=== PATIENT | male | born 1965 | race Caucasian/White ===

== ENCOUNTER → 2017-01-11 | Outpatient (CLI) | payer OTHER ==
[~2017-01-11] MED LIST: DIAZEPAM 10 MG TABLET ONE; DIPHENHYDRAMINE 50 MG/ML VIAL ONE; FENTANYL PF 100 MCG/2 ML VIAL. ONE; IOHEXOL 350 MG/ML 100ML VIAL. ONE; IOHEXOL 350 MG/ML 50 ML VIAL. ONE; IV NORMAL SALINE 1000ML BAG 1,000 ML ONE; LIDOCAINE 1% Multi-Dose 20 ML VIAL. ONE; MIDAZOLAM HCL 2 MG/2 ML VIAL. ONE; methylPREDNISolone SOD SUCC PF 125 MG/2 ML VIAL. ONE
== END | disposition home or self-care (01) ==
LOC: PCVCINTER 11:14
PROVIDERS: ATTEND Internal Medicine Cardiovascular Disease
DX: I25.10 Atherosclerotic heart disease of native coronary artery without angina pectoris (principal); E78.00 Pure hypercholesterolemia, unspecified; I10 Essential (primary) hypertension
CPT/HCPCS: 36252; 93458; C1751; C1760; C1769; C1894; J1200; J2250; J2930; J3010; J7030; Q9967

== ENCOUNTER → 2018-08-29 | Outpatient (CLI) | payer OTHER ==
--- NOTE | 2018-08-29 17:01 | PCVCIMAG ---
APPROVED REPORT Study performed: 08/29/2018 15:00:49 Exam: Transesophageal Echocardiogram Indication: CAD , Hypertension, Dyspnea Patient Location: Echo lab Stress Nurse: Sada Watkins RN Status: routine Ht: 6 ft 0 in HR: 67 bpm BP: 124/82 mmHg Rhythm: NSR Procedure The patient underwent an Exercise Stress Test using the Shaun Protocol. Blood pressure, heart rate, and EKG were monitored. An Echocardiogram was performed by game technician in four stages in quad fashion. At peak stress, four selected images were obtained and placed side by side with resting images for comparison. Stress Test Details Stress Test: Exercise stress testing was performed using a Shaun protocol. HR Resting HR: 67 bpmMax Heart Rate (APMHR): 170 bpm Max HR Achieved: 144 bpmTarget HR (85% APMHR): 144 bpm % of APMHR: 84 Recovery HR: 91 bpm HR response to stress: Normal HR response to stress BP Resting BP: 124/82 mmHg Max BP: 170/80 mmHg Recovery BP: 156/70 mmHg ECG Resting ECG: Sinus Rhythm w/ nonspecific ST abnormality w/ PVCs Stress ECG: Sinus Rhythm, nonspecific ST-T abnormalities ST Change: Nondiagnostic resting ST abnormalities Arrhythmia: frequent isolated PVCs and occasional couplet PVC Recovery ECG: Sinus Rhythm, nonspecific ST-T abnormalities Recovery ST Change: Nondiagnostic resting ST abnormalities Recovery Arrhythmia: PVCs Clinical Reason for Termination: Maximal effort Stress Symptoms: Knee pain post surgery, Dyspnea Conclusion Clinical Response: Non-ischemic Exercise Capacity: Superior Stress ECG Response: Non-ischemic Stress Echo Images: Non-ischemic
== END | disposition home or self-care (01) ==
LOC: PCVCIMAG 14:56
PROVIDERS: ATTEND Internal Medicine Cardiovascular Disease
DX: I25.10 Atherosclerotic heart disease of native coronary artery without angina pectoris (principal); I10 Essential (primary) hypertension; R07.9 Chest pain, unspecified
CPT/HCPCS: 93325; 93351

== ENCOUNTER → 2019-02-01 | Outpatient (CLI) | payer OTHER ==
--- NOTE | 2019-02-01 15:51 | PCVCIMAG ---
APPROVED REPORT Study performed: 02/01/2019 14:36:54 Exam: Stress Echocardiogram Indication: CAD, chest pain, fam hx cad, dyspnea, htn Patient Location: Echo lab Stress Nurse: Sada Watkins RN Status: routine Ht: 6 ft 0 in HR: 64 bpm BP: 132/84 mmHg Rhythm: NSR Procedure The patient underwent an Exercise Stress Test using the Shaun Protocol. Blood pressure, heart rate, and EKG were monitored. An Echocardiogram was performed by waste transportation technician in four stages in quad fashion. At peak stress, four selected images were obtained and placed side by side with resting images for comparison. Stress Test Details Stress Test: Exercise stress testing was performed using a Shaun protocol. HR Resting HR: 64 bpmMax Heart Rate (APMHR): 169 bpm Max HR Achieved: 142 bpmTarget HR (85% APMHR): 143 bpm % of APMHR: 84 Recovery HR: 86 bpm HR response to stress: Normal HR response to stress BP Resting BP: 132/84 mmHg Max BP: 160/80 mmHg Recovery BP: 140/74 mmHg BP response to stress: Normal blood pressure response to stress. ECG Resting ECG: Sinus Rhythm, nonspecific ST-T abnormalities Stress ECG: Sinus Rhythm, nonspecific ST-T abnormalities ST Change: Nondiagnostic resting ST abnormalities Arrhythmia: multi-focal isolated and bigeminy PVCs Recovery ECG: Sinus Rhythm, nonspecific ST-T abnormalities Recovery ST Change: Nondiagnostic resting ST abnormalities Recovery Arrhythmia: PVCs Clinical Reason for Termination: Maximal effort Stress Symptoms: Dyspnea Exercise duration: 10 min 43 sec Highest Stage Achieved: Stage 4: 4.2 mph at 16% grade. Exercise capacity: 13.4 METs Overall Exercise Capacity for Age: Good Scale: Active Angina Score: None Pre-Stress Echo The resting Echocardiogram showed normal left ventricular contractility with an estimated Ejection Fraction of about >55%. Normal wall motion in all segments on baseline images. Post-Stress Echo The stress Echocardiogram showed normal left ventricular contractility with an estimated Ejection Fraction of about 65%. Normal augmentation of wall motion in all segments on post stress images. Clinical No clinical or ECG evidence for ischemia. Conclusion Clinical Response: Non-ischemic Exercise Capacity: Average Stress ECG Response: Non-ischemic Stress Echo Images: Non-ischemic The left ventricle is normal in size and wall thickness in both the rest and stress images. Other Information Study Quality: Adequate <Conclusion> The left ventricle is normal in size and wall thickness in both the rest and stress images.
== END | disposition home or self-care (01) ==
LOC: PCVCIMAG 15:08
PROVIDERS: ATTEND Internal Medicine Cardiovascular Disease
DX: I25.10 Atherosclerotic heart disease of native coronary artery without angina pectoris (principal); R07.9 Chest pain, unspecified; R06.00 Dyspnea, unspecified; I10 Essential (primary) hypertension; E78.00 Pure hypercholesterolemia, unspecified
CPT/HCPCS: 93325; 93351